=== PATIENT | male | born 1990 | race African-American/Black ===

== ENCOUNTER 2016-06-20 16:54 | Emergency (ER) | payer OTHER ==
[~2016-06-20] VITALS: Wt 63.5 kg
[2016-06-20 17:04] VITALS: Wt 63.5 kg
[2016-06-20] MEDS ORDERED: TETRACAINE 0.5% 4 ML OPH BOTH EYES ONE (18:00)
[2016-06-20] MEDS ORDERED: FLUORESCEIN STRIP BOTH EYES ONE (18:00)
--- NOTE | 2016-06-20 18:24 | RADRPT ---
PROCEDURE: Ultrasound bilateral globes CLINICAL INDICATION: Concern for foreign body. TECHNIQUE: Sonographic evaluation of the bilateral globes was performed. Briceno scale and color pedrito ging was performed in the sagittal and coronal planes. Images were reviewed on a high-resolution [employer] workstation. COMPARISON: None available FINDINGS: No sonographic evidence of foreign body in right eye is noted. The left lobe is unremarkable. IMPRESSION: 1. No sonographic evidence of foreign body in right eye. If clinical concern persists consider opht halmology consult. 2. Unremarkable left lobe. RPTAT: HH .Ellen Aguilar MD, Date Time Electronically viewed and signed by .Ellen Aguilar MD, on 06/20/2016 18:23 .N/
[2016-06-20] MEDS ORDERED: TBR.3OP5 RIGHT EYE (18:30)
--- NOTE | 2016-06-20 18:43 | ERD ---
ER Documentation Chief Complaint Date/Time DATE: 06/20/16 TIME: 18:38 Chief Complaint R EYE POSSIBLE FOREIGN BODY. NO BLEEDING. MILD PAIN HPI This is a 26-year-old male that presents to the ER with right eye possible foreign body. Patient states that he was driving on the freeway when he felt something went into his eye. He denies any eye pain. He denies any vision loss or blurry vision. He denies any photophobia. Patient denies any eye discharge. He denies seeing any floaters or seeing any bright lights. Patient denies any headache or nausea or vomiting. Patient does admit right watery eye. ROS 12 point review of systems was done, all negative except per HPI. Medications Home Meds Active Scripts Tobramycin Sulfate* (Tobrex*) 0.3%-5ml Opht, 1 DROP RIGHT EYE Q4H for 7 Days, EA Prov:CAM DEAN Ruba 06/20/16 Allergies Allergies: Coded Allergies: No Known Allergy (Unverified , 06/20/16) PMhx/Soc Medical and Surgical Hx: pt denies Medical Hx, pt denies Surgical Hx Hx Alcohol Use: No Hx Substance Use: No Hx Tobacco Use: No Smoking Status: Never smoker Physical Exam Vitals Vital Signs Date Time Temp Pulse Resp B/P Pulse Ox O2 Delivery O2 Flow Rate FiO2 06/20/16 17:04 98.7 77 20 118/78 98 Physical Exam GENERAL: The patient is well developed and appropriate for usual state of health , in no apparent distress. HEENT: Atraumatic. Conjunctivae are pink. There is no conjunctival injection, no foreign bodies. Negative Alex sign. Extraocular movements are intact and are nonpainful. No surrounding erythema. CHEST: Clear to auscultation bilaterally. There are no rales, wheezes or rhonchi. HEART: Regular rate and rhythm. No murmurs, clicks, rubs or gallops. NEURO: Alert and oriented. Results 24 hrs Current Medications Medications (Trade) Dose Ordered Sig/Sugey Route PRN Reason Start Time Stop Time Status Last Admin Dose Admin Fluorescein Sodium (Evtuf-B-Yoipy) 1 strip ONCE ONCE BOTH EYES 06/20/16 18:00 06/20/16 18:01 DC Tetracaine HCl (Tetracaine 0.5% Steri-Unit Macy) 1 drop ONCE ONCE BOTH EYES 06/20/16 18:00 06/20/16 18:01 DC Irrigating Solution (Eye Wash) 1 applic ONCE ONCE RIGHT EYE 06/20/16 19:00 06/20/16 19:01 Procedures/MDM Patient was stable throughout ER course. Visual acuity was taken right eye 20/ 40 left eye 20/40 bilateral eyes 20/40. Eye was examined with fluorescein staining there is no evidence of corneal abrasion,: no ulcerations. No foreign bodies were seen. Eye was irrigated with eyewash, with no complications. Ultrasound was done and interpreted by radiologist as no evidence of foreign body in the eye. This is a 26-year-old male presents to the ER with possible right eye foreign body, at this time there is no evidence of foreign body. I did not see any corneal abrasions or ulcerations on fluorescein examination. His visual acuity is the same on bilateral eyes. Patient will be sent home with tobramycin, he was given information for [facility]. He was told to follow-up tomorrow. I explained to patient that importance of following up with field producer. My medical decision-making was discussed with the patient he understands and agrees with plan. Patient needs to return to ER sooner if symptoms worsen. Patient understands and agrees with plan. Departure Diagnosis: Primary Impression: Sensation of foreign body in eye Condition: Stable Patient Instructions: Tobramycin Eye ointment Referrals: [facility] Hours: Mon - Fri 9:00 AM - 5:00 PM Additional Instructions: Call your primary care doctor TOMORROW for an appointment during the next 1-2 days.See the doctor sooner or return here if your condition worsens before your appointment time. PLEASE OPTHALMOLOGIST TOMORROW FOR FOLLOW UP, IT IS VERY IMPORTANT! CAM DEAN Jun 20, 2016 18:43
[2016-06-20 18:55] VITALS: BP 113/81; PULSE 66; RESP 16
[2016-06-20] MEDS ORDERED: OPHTHALMIC IRRIG SOLUTION 120 ML RIGHT EYE ONE (19:00)
== END 2016-06-20 18:57 | disposition home or self-care (01) ==
LOC: FTE 16:54
DX: H57.8 Other specified disorders of eye and adnexa (principal)
CPT/HCPCS: 76536; Z7502; Z7610

== ENCOUNTER 2016-07-25 16:23 | Emergency (ER) | payer OTHER ==
[~2016-07-25] VITALS: Ht 172.7 cm; Wt 61.5 kg
[~2016-07-25 16:23] MED LIST: TBR.3OP5 RIGHT EYE
[2016-07-25 16:38] VITALS: Ht 172.7 cm; Wt 61.5 kg
[2016-07-25] MEDS ORDERED: ACET500C5 PO (17:44)
[2016-07-25] MEDS ORDERED: AZIT250T94 PO (17:44)
[2016-07-25] MEDS ORDERED: SODI30SP2 NS (17:44)
[2016-07-25] MEDS ORDERED: BENZ100C70 PO (17:44)
--- NOTE | 2016-07-25 17:49 | ERD ---
ER Documentation Chief Complaint Date/Time DATE: 07/25/16 TIME: 17:45 Chief Complaint FERMIN, STUFFY NOSE, & BODY ACHES [id number] HPI Patient is a 26-year-old homeless male with no past medical history who presents to the ED with cough, mild body aches, congestion, sore throat on and off for the last week. He states that his symptoms have been constant and are not getting better. Denies fever or chills. Denies abdominal pain, nausea, vomiting or diarrhea. Denies chest pain or shortness of breath. Denies leg pain or leg swelling. Denies recent travel or recent surgeries. Denies hemoptysis, night sweats. He states that he was sent home from work today due to the coughing. She has tried abzf-xij-okayrfl medications such as Robitussin , throat lozenges and honey ENT. No other complaints. ROS All systems reviewed and are negative except as per history of present illness. Medications Home Meds Active Scripts Azithromycin* (Zithromax*) 250 Mg Tablet, 250 MG PO .SydniPACK DIRECTED, #6 TAB TAKE 500 MG (2 TABS) THE FIRST DAY THEN 250 MG (1 TAB) DAYS 2-5 Prov:CHRIS YI PA-C 07/25/16 Benzonatate* (Tessalon Perle*) 100 Mg Capsule, 100 MG PO Q8H Y for COUGH for 14 Days, CAP Prov:CHRIS YI-C 07/25/16 Sodium Chloride (Saline Nasal Essie) 30 Ml Essie, 30 ML NS BID for 28 Days, SPRAY Prov:CHRIS YI PA-C 07/25/16 Acetaminophen* (Tylophen*) 500 Mg Capsule, 1 CAP PO Q6H Y for PAIN AND OR ELEVATED TEMP, #20 CAP Prov:HALTACHRIS GARCIA-C 07/25/16 Tobramycin Sulfate* (Tobrex*) 0.3%-5ml Opht, 1 DROP RIGHT EYE Q4H for 7 Days, EA Prov:CAM DEAN 06/20/16 Allergies Allergies: Coded Allergies: No Known Allergy (Unverified , 06/20/16) PMhx/Soc History of Surgery: No Anesthesia Reaction: No Hx Neurological Disorder: No Hx Respiratory Disorders: No Hx Cardiac Disorders: No Hx Psychiatric Problems: No Hx Miscellaneous Medical Probl: No Hx Alcohol Use: No Hx Substance Use: No Hx Tobacco Use: No FmHx Family History: No coronary disease, No diabetes, No other Physical Exam Vitals Vital Signs Date Time Temp Pulse Resp B/P Pulse Ox O2 Delivery O2 Flow Rate FiO2 07/25/16 16:38 99.4 119 20 150/63 97 Physical Exam GENERAL: Well-developed, well-nourished male. Appears in no acute distress. HEAD: Normocephalic, atraumatic. EYES: Pupils are equally reactive bilaterally. EOMs grossly intact. No conjunctival erythema. ENT: Moist mucous membranes. No uvula deviation. No kissing tonsils. No exudates. NECK: Supple. No lymphadenopathy or thyromegaly. No meningismus. negative kernig. negative brudinski. LUNG: Clear to auscultation bilaterally. No rhonchi, wheezing, rales or coarse breath sounds. HEART: Regular rate and rhythm. No murmurs, rubs or gallops. Extremities: Equal pulses bilaterally. No peripheral clubbing, cyanosis or edema. No unilateral leg swelling. NEUROLOGIC: Alert and oriented. Moving all four extremities. 5/5 strength in all extremities. Normal speech. Steady gait. SKIN: Normal color. Warm and dry. No rashes or lesions. Capillary refill < 2 seconds Results 24 hrs Current Medications Medications (Trade) Dose Ordered Sig/Sugey Route PRN Reason Start Time Stop Time Status Last Admin Dose Admin Acetaminophen (Tylenol Tab) 650 mg ONCE ONCE PO 07/25/16 18:00 07/25/16 18:01 Procedures/MDM ER COURSE: I kept the patient and/or family informed of laboratory and diagnostic imaging results throughout the emergency room course. MEDICAL DECISION MAKING: This is a 26-year-old male who presents with cough, congestion and sore throat 1 week. Vital signs were reviewed. Patient is afebrile. Patient is not hypoxic. Patient likely has URI of viral etiology. Patient does have slightly elevated pulse which is likely related to his coughing and stress reaction. Low suspicion for pneumonia, PE, pneumothorax, ACS, epiglottitis, obstruction, TB, pertussis, meningitis, sepsis. Low suspicion for ACS, PE, AAA, dissection, DVT. Tylenol was given here in the ED. Tolerated well with no adverse reaction. DISCHARGE: At this time, patient is stable for discharge and outpatient management with no new complaints during the ER course. Patient was sent home with Tessalon Perles , saline nasal spray, Tylenol and azithromycin. I advised patient to hold the antibiotics for 2-3 days and to start them if his symptoms do not improve.. Patient will be discharged home with instructions to recheck for new or worsening symptoms such as fever, nausea, weakness, LOC and to follow up with primary care in the next 1-2 days. Patient was advised to return to the ER for any new or worsening symptoms. Plan was discussed and patient and/or family understands and agrees. Home instructions were given. Departure Diagnosis: Primary Impression: URI, acute Condition: Stable Patient Instructions: Cough, Chronic, Uncertain Cause, (Adult) Additional Instructions: Call your primary care doctor TOMORROW for an appointment during the next 1-2 days.See the doctor sooner or return here if your condition worsens before your appointment time. CHRIS YI PA-C July 25, 2016 17:48
[2016-07-25] MEDS ORDERED: ACETAMINOPHEN 325 MG TAB PO ONE (18:00)
== END 2016-07-25 17:54 | disposition home or self-care (01) ==
LOC: FTE 16:23
DX: J06.9 Acute upper respiratory infection, unspecified (principal)
CPT/HCPCS: Z7502; Z7610; 99284

== ENCOUNTER 2017-12-28 17:15 | Emergency (ER) | END 2017-12-28 19:10 | disposition home or self-care (01) ==

== ENCOUNTER 2018-10-28 14:36 | Emergency (ER) | payer OTHER ==
[~2018-10-28] VITALS: Wt 63.7 kg
[~2018-10-28 14:36] MED LIST changes: +ACET500C5 PO; +AZIT250T PO; +BENZ-6 PO; +IBUP-1542 PO; +ONDA4TAB14 PO; +RANI150T35 PO; +SIME40DR55 PO; +SODI30SP2 NS
[2018-10-28 14:40] VITALS: BP 120/82; PULSE 84; RESP 18
== END 2018-10-28 14:49 | disposition home or self-care (01) ==
LOC: E/R 14:36
DX: R51 Headache (principal)
CPT/HCPCS: 99282